=== PATIENT | female | born 1950 | race Caucasian/White ===

== ENCOUNTER 2017-01-01 21:22 | Inpatient (IN) | payer MEDICARE, OTHER ==
[~2017-01-01] VITALS: Ht 162.6 cm; Wt 73.5 kg
--- NOTE | 2017-01-01 21:30 | NUR ---
PT BIB [facility];DR WHARTON TO EXAM
[2017-01-01 22:17] LABS: BASOPHILS % (AUTO) 0.2 % (0.0-2.0); EOSINOPHILS # (AUTO) 0.1 K/uL (0.0-0.7); EOSINOPHILS % (AUTO) 0.7 % (0.0-7.0); HEMATOCRIT 37.9 % (37-47); HEMOGLOBIN 12.8 G/DL (12.0-16.0); LYMPHOCYTES # (AUTO) 2.1 K/UL (0.8-4.8); LYMPHOCYTES % (AUTO) 15.8 % (20.5-51.5); MEAN CORPUSCULAR HEMOGLOBIN 28.7 UUG (27.0-31.0); MEAN CORPUSCULAR HGB CONC 34 g/dL (32.0-37.0); MEAN CORPUSCULAR VOLUME 85.4 FL (81.0-99.0); MONOCYTES # (AUTO) 0.7 K/UL (0.1-1.30); MONOCYTES % (AUTO) 4.9 % (0.0-11.0); NEUTROPHILS # (AUTO) 10.4 K/UL (1.8-8.9); NEUTROPHILS % (AUTO) 78.4 % (38.5-71.5); PLATELET COUNT (AUTO) 427 K/UL (150-450); RED BLOOD CELL COUNT(AUTO) 4.44 MIL/UL (4.2-5.4); WHITE BLOOD COUNT (AUTO) 13.3 K/UL (4.0-11.2)
[2017-01-01 22:25] LABS: CARBON DIOXIDE 30 mmol/L (21-32); CHLORIDE 106 mmol/L (98-107); CREATININE 0.8 mg/dL (0.6-1.3); GLUCOSE 109 mg/dL (74-106); UREA NITROGEN, BLOOD 30 mg/dL (7-18)
[2017-01-01] MEDS ORDERED: LISI-603 PO (22:25)
[2017-01-01] MEDS ORDERED: DOCU100C36 PO (22:25)
[2017-01-01] MEDS ORDERED: ALPR0.255 PO (22:25)
[2017-01-01] MEDS ORDERED: NIFE30TA91 PO (22:25)
[2017-01-01] MEDS ORDERED: MULT1TAB11 PO (22:25)
[2017-01-01] MEDS ORDERED: PRED20TA PO (22:25)
[2017-01-01] MEDS ORDERED: FLUO10CA26 PO (22:25)
[2017-01-01] MEDS ORDERED: CLON0.1T PO ×2 (22:25)
[2017-01-01] MEDS ORDERED: ACET325T53 PO (22:25)
[2017-01-01] MEDS ORDERED: OMEG1CAP40 PO (22:25)
[2017-01-01] MEDS ORDERED: MAGN400O6 PO (22:25)
[2017-01-01] MEDS ORDERED: SIME80TA15 PO (22:25)
[2017-01-01] MEDS ORDERED: FLUT1DIS28 IH (22:25)
[2017-01-01 22:30] LABS: ACETAMINOPHEN < 2.0 ug/mL (10-30); ALANINE AMINOTRANSFERASE 28 U/L (14-59); ALKALINE PHOSPHATASE 53 U/L (50-136); ASPARTATE AMINOTRANSFERASE 12 U/L (15-37); BILIRUBIN,DIRECT < 0.1 mg/dL (0.0-0.2); BILIRUBIN,TOTAL 0.1 mg/dL (0.2-1.0); TOTAL PROTEIN, SERUM 6.6 g/dL (6.4-8.2)
[2017-01-01 22:31] LABS: ETHANOL < 3 MG/DL (0-0)
[2017-01-01 22:50] LABS: THYROID STIMULATING HORMONE 0.947 mIU/mL (0.358-3.740)
--- NOTE | 2017-01-01 23:44 | NUR ---
Pt. admitted to [facility], under care of Dr. La. Belongs List completed
[2017-01-02] MEDS: TEMAZEPAM 7.5 MG CAPSULE PO PRN (00:14)
[2017-01-02] MEDS ORDERED: MAGNESIUM HYDROXIDE 30 ML LIQUID UDC PO PRN (00:15)
[2017-01-02] MEDS ORDERED: MAG HYDROX/AL HYDROX/SIMETH 30 ML LIQUID UDC PO PRN (00:15)
[2017-01-02] MEDS ORDERED: TEMAZEPAM 7.5 MG CAPSULE ONE (00:26)
[2017-01-02 00:40] VITALS: BP 181/98
--- NOTE | 2017-01-02 01:34 | NUR ---
GPS: Admitted to unit earlier a 66 yr.old female under the care of / in stable condition. Pt.is on a 72 hour hold for DTS. Pt. acknowledged stating a wish to to [facility] mental health social worker by inhaling car exhaust as plan,per hold. Pt.is depressed but denies wanting to hurt self at this time. Contracts for safety while in the hosp. Re-assured prn. Skin assessment done as well as belongings list. Safe environment provided. Medicated with Restoril 7.5mg for sleep per pts.request. Will continue to monitor.
[2017-01-02 07:30] VITALS: BP 176/80
[2017-01-02] MEDS: NICOTINE 14 MG/24HR PATCH TD SCH (09:50)
[2017-01-02] MEDS: LORAZEPAM 0.5 MG TABLET PO PRN (09:58)
[2017-01-02] MEDS ORDERED: Medication Not On Formulary EA (Omega-3 Fatty Acids/Fish Oil (Omega 3 1,000 Mg Softgel) PO SCH (10:15)
[2017-01-02] MEDS ORDERED: Medication Not On Formulary EA (Nifedipine (Nifedipine Er) 30 MG) PO SCH (10:15)
[2017-01-02] MEDS ORDERED: FLUTICASONE/SALMETEROL 250/50 INHALER IH SCH (10:15)
[2017-01-02] MEDS ORDERED: CLONIDINE HCL 0.1 MG TABLET PO PRN (10:15)
[2017-01-02] MEDS ORDERED: DEXTROSE 50% 50 ML DISP.SYRIN IV PRN (10:15)
[2017-01-02] MEDS ORDERED: SIMETHICONE 80 MG TAB.CHEW PO PRN (10:15)
[2017-01-02] MEDS ORDERED: Medication Not On Formulary EA (Multivitamins W-Minerals (Multivitamin With Minerals) 1 PO SCH (10:15)
[2017-01-02] MEDS: OMEGA-3 FATTY ACIDS/FISH OIL CAPSULE PO SCH ×2 (11:26→20:24)
[2017-01-02] MEDS: DOCUSATE SODIUM 100 MG CAPSULE PO SCH (11:26)
[2017-01-02] MEDS: MULTIVIT, IRON, MIN NO. 8, FA TABLET PO SCH (11:26)
[2017-01-02] MEDS: predniSONE 20 MG TABLET PO SCH (11:26)
[2017-01-02] MEDS: LISINOPRIL 20 MG TABLET PO SCH (11:26)
[2017-01-02] MEDS: NIFEdipine XL 30 MG TABSR PO SCH (11:26)
[2017-01-02] MEDS: CLONIDINE HCL 0.1 MG TABLET PO SCH ×3 (11:29→21:12)
[2017-01-02] MEDS: BLOOD SUGAR DIAGNOSTIC 1 EACH STRIP VI SCH ×3 (11:50→20:59)
[2017-01-02] MEDS: FLUTICASONE/VILANTEROL 1 EACH BLST.W.DEV INH SCH (13:12)
[2017-01-02 15:00] VITALS: BP 168/87
--- NOTE | 2017-01-02 16:22 | NUR ---
Initial Discharge Instructions: Pt was residing at [facility] [[address] [place] [address]; ]. Per pt she would like to return there upon discharge. Pt consented to speak with pt's son, Freeman Fernandez ([phone]). SW will speak with pt, family, facility, and MD regarding appropriate discharge plans. SW will form a safe and proper discharge plan.
[2017-01-02] MEDS: INSULIN REGULAR, HUMAN 300 UNIT/3 ML VIAL SQ PRN (17:24)
[2017-01-02 19:52] LABS: *BILIRUBIN,URIN NEGATIVE (NEGATIVE); *BLOOD, URINE NEGATIVE (NEGATIVE); *CLARITY,URINE SLIGHTLY CLOUDY (CLEAR); *COLOR,URINE YELLOW (YELLOW); *KETONES,URINE NEGATIVE (NEGATIVE); *PROTEIN,URINE NEGATIVE (NEGATIVE); *UROBILINOGEN,URINE 0.2 E.U./dl (NORMAL); LEUKOCYTE ESTERASE ,URINE TRACE (NEGATIVE); NITRITE, URINE POSITIVE (NEGATIVE); PH,URINE 5.5 (5.0-8.0); UGLUCOSE NEGATIVE (NEGATIVE)
[2017-01-02 19:57] LABS: *AMPHETAMINE, URINE NEGATIVE (NEGATIVE); *BARBITURATE, URINE NEGATIVE (NEGATIVE); *CANNABINOID, URINE NEGATIVE (NEGATIVE); *COCCAINE, URINE NEGATIVE (NEGATIVE); *OPIATE, URINE NEGATIVE (NEGATIVE); *PHENCYCLIDINE SCREEN,URINE NEGATIVE (NEGATIVE)
[2017-01-02] MEDS: ATORVASTATIN 10 MG TABLET PO SCH (20:24)
[2017-01-02] MEDS: SERTRALINE HCL 50 MG TABLET PO SCH (20:24)
[2017-01-02 20:53] LABS: BACTERIA,URINE MANY /HPF (NONE SEEN); MUCUS,URINE MANY /LPF (0-FEW); RBC,URINE 0-3 /HPF (0-3); SQUAMOUS EPITHELIAL CELL,UR MODERATE /HPF (NONE SEEN)
[2017-01-02 20:58] VITALS: BP 160/90
[2017-01-03] MEDS: LORAZEPAM 0.5 MG TABLET PO PRN ×2 (03:11→16:33)
[2017-01-03] MEDS: CLONIDINE HCL 0.1 MG TABLET PO SCH ×3 (06:13→21:13)
[2017-01-03] MEDS: BLOOD SUGAR DIAGNOSTIC 1 EACH STRIP VI SCH ×4 (06:37→20:32)
[2017-01-03 07:30] VITALS: BP 137/75
[2017-01-03] MEDS: NIFEdipine XL 30 MG TABSR PO SCH (08:19)
[2017-01-03] MEDS: DOCUSATE SODIUM 100 MG CAPSULE PO SCH (08:19)
[2017-01-03] MEDS: MULTIVIT, IRON, MIN NO. 8, FA TABLET PO SCH (08:19)
[2017-01-03] MEDS: OMEGA-3 FATTY ACIDS/FISH OIL CAPSULE PO SCH ×2 (08:19→20:11)
[2017-01-03] MEDS: SERTRALINE HCL 50 MG TABLET PO SCH (08:20)
[2017-01-03] MEDS: predniSONE 20 MG TABLET PO SCH (08:20)
[2017-01-03] MEDS: NICOTINE 14 MG/24HR PATCH TD SCH (08:20)
[2017-01-03] MEDS: LISINOPRIL 20 MG TABLET PO SCH (08:20)
[2017-01-03] MEDS: SULFAMETH/TRIMETH 800/160 MG TABLET PO SCH ×2 (08:20→16:19)
[2017-01-03] MEDS: FLUTICASONE/VILANTEROL 1 EACH BLST.W.DEV INH SCH (08:23)
[2017-01-03] MEDS: INSULIN REGULAR, HUMAN 300 UNIT/3 ML VIAL SQ PRN (16:32)
[2017-01-03 20:09] VITALS: BP 124/71
[2017-01-03] MEDS: ATORVASTATIN 10 MG TABLET PO SCH (20:11)
[2017-01-03] MEDS: TEMAZEPAM 7.5 MG CAPSULE PO PRN (20:50)
[2017-01-04] MEDS: LORAZEPAM 1 MG TABLET PO PRN ×2 (00:42→15:07)
[2017-01-04] MEDS: ACETAMINOPHEN 325 MG TABLET PO PRN (01:40)
[2017-01-04] MEDS: BLOOD SUGAR DIAGNOSTIC 1 EACH STRIP VI SCH ×4 (06:40→21:00)
[2017-01-04] MEDS: CLONIDINE HCL 0.1 MG TABLET PO SCH ×3 (06:42→22:03)
[2017-01-04 07:12] LABS: BASOPHILS # (AUTO) 0.1 K/uL (0.0-8.0); BASOPHILS % (AUTO) 0.5 % (0.0-2.0); EOSINOPHILS # (AUTO) 0.2 K/uL (0.0-0.7); EOSINOPHILS % (AUTO) 1.4 % (0.0-7.0); HEMATOCRIT 42.1 % (37-47); HEMOGLOBIN 14.4 G/DL (12.0-16.0); LYMPHOCYTES # (AUTO) 3.8 K/UL (0.8-4.8); LYMPHOCYTES % (AUTO) 27.7 % (20.5-51.5); MEAN CORPUSCULAR HEMOGLOBIN 29.3 UUG (27.0-31.0); MEAN CORPUSCULAR HGB CONC 34 g/dL (32.0-37.0); MEAN CORPUSCULAR VOLUME 85.5 FL (81.0-99.0); MONOCYTES # (AUTO) 0.8 K/UL (0.1-1.30); MONOCYTES % (AUTO) 6.2 % (0.0-11.0); NEUTROPHILS # (AUTO) 8.7 K/UL (1.8-8.9); NEUTROPHILS % (AUTO) 64.2 % (38.5-71.5); PLATELET COUNT (AUTO) 470 K/UL (150-450); RED BLOOD CELL COUNT(AUTO) 4.93 MIL/UL (4.2-5.4); WHITE BLOOD COUNT (AUTO) 13.6 K/UL (4.0-11.2)
[2017-01-04 07:22] LABS: BILIRUBIN,TOTAL 0.4 mg/dL (0.2-1.0); CREATININE 1.1 mg/dL (0.6-1.3); PHOSPHOROUS 3.5 mg/dL (2.5-4.9); POTASSIUM 3.8 mmol/L (3.5-5.1); TOTAL PROTEIN, SERUM 7.1 g/dL (6.4-8.2)
[2017-01-04 07:30] VITALS: BP 141/83
[2017-01-04] MEDS: SULFAMETH/TRIMETH 800/160 MG TABLET PO SCH ×2 (08:19→16:28)
[2017-01-04] MEDS: MULTIVIT, IRON, MIN NO. 8, FA TABLET PO SCH (08:19)
[2017-01-04] MEDS: NIFEdipine XL 30 MG TABSR PO SCH (08:19)
[2017-01-04] MEDS: LISINOPRIL 20 MG TABLET PO SCH (08:20)
[2017-01-04] MEDS: OMEGA-3 FATTY ACIDS/FISH OIL CAPSULE PO SCH ×2 (08:20→22:09)
[2017-01-04] MEDS: DOCUSATE SODIUM 100 MG CAPSULE PO SCH (08:20)
[2017-01-04] MEDS: predniSONE 20 MG TABLET PO SCH (08:20)
[2017-01-04] MEDS: SERTRALINE HCL 50 MG TABLET PO SCH (08:20)
[2017-01-04] MEDS: FLUTICASONE/VILANTEROL 1 EACH BLST.W.DEV INH SCH (08:21)
[2017-01-04] MEDS: NICOTINE 14 MG/24HR PATCH TD SCH (08:32)
[2017-01-04] MEDS ORDERED: NICOTINE 14 MG/24HR PATCH TD SCH (09:00)
[2017-01-04] MEDS: NICOTINE 21 MG/24HR PATCH TD SCH (09:26)
[2017-01-04] MEDS: INSULIN REGULAR, HUMAN 300 UNIT/3 ML VIAL SQ PRN (16:31)
[2017-01-04 16:52] VITALS: BP 126/70
[2017-01-04 20:46] VITALS: BP 131/78
[2017-01-04] MEDS ORDERED: chlorproMAZINE 25 MG TABLET PO SCH ×2 (21:00)
[2017-01-04] MEDS ORDERED: DIVALPROEX 250 MG TABLET.DR PO SCH (21:00)
[2017-01-04] MEDS: ATORVASTATIN 10 MG TABLET PO SCH (22:09)
[2017-01-04] MEDS: TRIHEXYPHENIDYL HCL 2 MG TABLET PO SCH (22:15)
[2017-01-04] MEDS: TEMAZEPAM 7.5 MG CAPSULE PO PRN (22:18)
[2017-01-05] MEDS: ACETAMINOPHEN 325 MG TABLET PO PRN (02:42)
[2017-01-05] MEDS: CLONIDINE HCL 0.1 MG TABLET PO SCH ×3 (06:09→22:00)
[2017-01-05] MEDS: BLOOD SUGAR DIAGNOSTIC 1 EACH STRIP VI SCH ×4 (07:04→20:24)
[2017-01-05 07:30] VITALS: BP 121/78
[2017-01-05] MEDS: DOCUSATE SODIUM 100 MG CAPSULE PO SCH (08:08)
[2017-01-05] MEDS: OMEGA-3 FATTY ACIDS/FISH OIL CAPSULE PO SCH ×2 (08:08→20:10)
[2017-01-05] MEDS: NICOTINE 21 MG/24HR PATCH TD SCH (08:08)
[2017-01-05] MEDS: NIFEdipine XL 30 MG TABSR PO SCH (08:09)
[2017-01-05] MEDS: LISINOPRIL 20 MG TABLET PO SCH (08:09)
[2017-01-05] MEDS: SULFAMETH/TRIMETH 800/160 MG TABLET PO SCH ×2 (08:10→16:57)
[2017-01-05] MEDS: SERTRALINE HCL 50 MG TABLET PO SCH (08:10)
[2017-01-05] MEDS: predniSONE 20 MG TABLET PO SCH (08:10)
[2017-01-05] MEDS: TRIHEXYPHENIDYL HCL 2 MG TABLET PO SCH (08:11)
[2017-01-05] MEDS: MULTIVIT, IRON, MIN NO. 8, FA TABLET PO SCH (08:20)
[2017-01-05] MEDS: FLUTICASONE/VILANTEROL 1 EACH BLST.W.DEV INH SCH (08:20)
[2017-01-05] MEDS ORDERED: TRIHEXYPHENIDYL HCL 2 MG TABLET PO SCH (13:00)
[2017-01-05] MEDS ORDERED: DIVALPROEX 250 MG TABLET.DR PO SCH (13:00)
[2017-01-05] MEDS ORDERED: MAGNESIUM HYDROXIDE 30 ML LIQUID UDC PO ONE (13:00)
[2017-01-05] MEDS ORDERED: BISACODYL 5 MG TABLET.DR PO PRN (13:00)
[2017-01-05] MEDS ORDERED: chlorproMAZINE 25 MG TABLET PO SCH (13:00)
[2017-01-05 16:43] VITALS: BP 153/79
[2017-01-05] MEDS: LORAZEPAM 1 MG TABLET PO PRN (16:57)
[2017-01-05] MEDS: INSULIN REGULAR, HUMAN 300 UNIT/3 ML VIAL SQ PRN ×2 (17:05→20:30)
[2017-01-05] MEDS: ATORVASTATIN 10 MG TABLET PO SCH (20:10)
[2017-01-05 20:23] VITALS: BP 121/60
[2017-01-06] MEDS: CLONIDINE HCL 0.1 MG TABLET PO SCH ×3 (06:33→21:35)
[2017-01-06] MEDS: BLOOD SUGAR DIAGNOSTIC 1 EACH STRIP VI SCH ×4 (06:40→20:16)
[2017-01-06 07:30] VITALS: BP 133/80
[2017-01-06] MEDS: DOCUSATE SODIUM 100 MG CAPSULE PO SCH ×2 (08:02→20:20)
[2017-01-06] MEDS: OMEGA-3 FATTY ACIDS/FISH OIL CAPSULE PO SCH ×2 (08:02→20:20)
[2017-01-06] MEDS: SERTRALINE HCL 50 MG TABLET PO SCH (08:02)
[2017-01-06] MEDS: SULFAMETH/TRIMETH 800/160 MG TABLET PO SCH ×2 (08:03→17:27)
[2017-01-06] MEDS: LISINOPRIL 20 MG TABLET PO SCH (08:03)
[2017-01-06] MEDS: predniSONE 20 MG TABLET PO SCH (08:03)
[2017-01-06] MEDS: MULTIVIT, IRON, MIN NO. 8, FA TABLET PO SCH (08:03)
[2017-01-06] MEDS: NIFEdipine XL 30 MG TABSR PO SCH (08:03)
[2017-01-06] MEDS: NICOTINE 21 MG/24HR PATCH TD SCH (08:04)
[2017-01-06] MEDS: FLUTICASONE/VILANTEROL 1 EACH BLST.W.DEV INH SCH (08:56)
[2017-01-06] MEDS: INSULIN REGULAR, HUMAN 300 UNIT/3 ML VIAL SQ PRN (12:40)
[2017-01-06] MEDS ORDERED: BISACODYL 10 MG SUPP.RECT RC PRN (14:30)
[2017-01-06] MEDS ORDERED: BISACODYL 5 MG TABLET.DR PO ONE (14:30)
[2017-01-06 17:10] VITALS: BP 153/86
[2017-01-06] MEDS: ATORVASTATIN 10 MG TABLET PO SCH ×2 (20:20→20:21)
[2017-01-06 20:31] VITALS: BP 149/74
[2017-01-06] MEDS: TEMAZEPAM 7.5 MG CAPSULE PO PRN (21:35)
[2017-01-07] MEDS: CLONIDINE HCL 0.1 MG TABLET PO SCH ×3 (06:15→21:12)
[2017-01-07] MEDS: BLOOD SUGAR DIAGNOSTIC 1 EACH STRIP VI SCH ×2 (06:15→18:20)
[2017-01-07] MEDS ORDERED: INSULIN REGULAR, HUMAN 300 UNIT/3 ML VIAL SQ PRN (07:30)
[2017-01-07] MEDS ORDERED: DEXTROSE 50% 50 ML DISP.SYRIN IV PRN (07:30)
--- NOTE | 2017-01-07 07:30 | NUR ---
Awake, alert, oriented x 3, reading a book. Pleasant and interacts
[2017-01-07 07:32] LABS: BASOPHILS # (AUTO) 0.1 K/uL (0.0-8.0); BASOPHILS % (AUTO) 0.7 % (0.0-2.0); EOSINOPHILS # (AUTO) 0.2 K/uL (0.0-0.7); EOSINOPHILS % (AUTO) 1.3 % (0.0-7.0); HEMATOCRIT 37.4 % (31.2-41.9); HEMOGLOBIN 12.9 g/dL (10.9-14.3); LYMPHOCYTES # (AUTO) 3.7 K/uL (20.0-40.0); LYMPHOCYTES % (AUTO) 29.6 % (20.5-51.5); MEAN CORPUSCULAR HEMOGLOBIN 29.3 uug (24.7-32.8); MEAN CORPUSCULAR HGB CONC 35 g/dL (32.3-35.6); MEAN CORPUSCULAR VOLUME 84.8 fL (75.5-95.3); MONOCYTES # (AUTO) 0.9 K/uL (2.0-10.0); MONOCYTES % (AUTO) 7.1 % (0.0-11.0); NEUTROPHILS # (AUTO) 7.7 K/uL (1.8-8.9); NEUTROPHILS % (AUTO) 61.3 % (38.5-71.5); PLATELET COUNT (AUTO) 364 K/uL (179-408); RED BLOOD CELL COUNT(AUTO) 4.41 MIL/uL (3.63-4.92); WHITE BLOOD COUNT (AUTO) 12.5 K/uL (3.8-11.8)
[2017-01-07 07:54] VITALS: BP 122/72
[2017-01-07 07:58] LABS: BILIRUBIN,TOTAL 0.3 mg/dL (0.2-1.0); MAGNESIUM 1.9 mg/dL (1.8-2.4); PHOSPHOROUS 2.9 mg/dL (2.5-4.9); POTASSIUM 3.7 mmol/L (3.5-5.1); TOTAL PROTEIN, SERUM 6.2 g/dL (6.4-8.2)
[2017-01-07] MEDS: OMEGA-3 FATTY ACIDS/FISH OIL CAPSULE PO SCH ×2 (08:43→20:04)
[2017-01-07] MEDS: FLUTICASONE/VILANTEROL 1 EACH BLST.W.DEV INH SCH (08:43)
[2017-01-07] MEDS: DOCUSATE SODIUM 100 MG CAPSULE PO SCH ×2 (08:43→20:04)
[2017-01-07] MEDS: SULFAMETH/TRIMETH 800/160 MG TABLET PO SCH ×2 (08:43→18:20)
[2017-01-07] MEDS: LISINOPRIL 20 MG TABLET PO SCH (08:44)
[2017-01-07] MEDS: predniSONE 20 MG TABLET PO SCH (08:44)
[2017-01-07] MEDS: NICOTINE 21 MG/24HR PATCH TD SCH (08:45)
[2017-01-07] MEDS: NIFEdipine XL 30 MG TABSR PO SCH (08:45)
[2017-01-07] MEDS: MULTIVIT, IRON, MIN NO. 8, FA TABLET PO SCH (08:45)
[2017-01-07] MEDS: SERTRALINE HCL 50 MG TABLET PO SCH (08:45)
--- NOTE | 2017-01-07 15:00 | NUR ---
Placed on voluntary status.
--- NOTE | 2017-01-07 15:28 | NUR ---
Traveling Auditor: Pt release by court hearing on 01/07/17. Pt wishes to return to [facility] in [facility] [[address] [place] [address]; ]. Pt verbalized understanding of 7-day bed hold at [facility] and asked for Ombudsman. SW provided pt with Ombudsman information. Spoke with Holden at [facility] who is aware of pt's wishes and will follow-up. REBECCA will continue to follow-up.
[2017-01-07 16:46] VITALS: BP 146/75
[2017-01-07 19:59] VITALS: BP 132/76
[2017-01-07] MEDS: ATORVASTATIN 10 MG TABLET PO SCH (20:04)
[2017-01-07] MEDS: TEMAZEPAM 7.5 MG CAPSULE PO PRN (21:12)
[2017-01-08] MEDS: CLONIDINE HCL 0.1 MG TABLET PO SCH (06:28)
[2017-01-08] MEDS: BLOOD SUGAR DIAGNOSTIC 1 EACH STRIP VI SCH (06:38)
[2017-01-08] MEDS: predniSONE 20 MG TABLET PO SCH (08:16)
[2017-01-08] MEDS: OMEGA-3 FATTY ACIDS/FISH OIL CAPSULE PO SCH (08:16)
[2017-01-08] MEDS: LISINOPRIL 20 MG TABLET PO SCH (08:16)
[2017-01-08] MEDS: NICOTINE 21 MG/24HR PATCH TD SCH (08:16)
[2017-01-08] MEDS: NIFEdipine XL 30 MG TABSR PO SCH (08:16)
[2017-01-08] MEDS: SULFAMETH/TRIMETH 800/160 MG TABLET PO SCH (08:16)
[2017-01-08] MEDS: MULTIVIT, IRON, MIN NO. 8, FA TABLET PO SCH (08:16)
[2017-01-08] MEDS: SERTRALINE HCL 50 MG TABLET PO SCH (08:16)
[2017-01-08] MEDS: DOCUSATE SODIUM 100 MG CAPSULE PO SCH (08:17)
[2017-01-08] MEDS: FLUTICASONE/VILANTEROL 1 EACH BLST.W.DEV INH SCH (08:32)
[2017-01-08 09:08] VITALS: BP 117/71
--- NOTE | 2017-01-08 09:13 | NUR ---
News Internship: At 0810, spoke with Holden at [facility] who stated he will contact collection systems administrator about time the facility is able to accept patient for discharge today. Waiting for return call. SW will follow-up.
--- NOTE | 2017-01-08 09:55 | NUR ---
DC Note: Patient will be discharged to [facility] [[address] [place] [address]; ] via ambulance today at 2pm. Spoke with Holden at the facility who states that they ready to accept the patient today. Patients sonFreeman is aware and agreeable with discharge plans. Patient is aware and agreeable with discharge plans. Pt will follow-up at the facility with Dr. Astudillo (Room Service Waiter/Waitress) and Dr. La (Psychiatrist). Spoke with social science teacherAlba at the facility who stated she is putting in a Psychotherapist referral for the patient. For smoking cessation, patient was referred to [employer] 800-LUNGUSA and [employer] [phone].
--- NOTE | 2017-01-08 13:20 | NUR ---
Pt to DC to [facility] [ [address] [place] [address]; ] via ambulance today at 1320pm. Pt will follow up at the facility w/ Dr. Astudillo and Dr. La. Pt is stable to DC, calm, cooperative, well groomed, skin intact,denies suicidal ideation at this time and contracts for safety inside and outside of the hospital. Pt discharged w/ all belongings, valuables, DC paperwork, and exit care packet.
== END 2017-01-08 13:30 | DRG 885 ==
LOC: ER 21:23 → GPS 22:45
PROVIDERS: ADMIT Psychiatry & Neurology Psychosomatic Medicine; ATTEND Internal Medicine
DX: F33.2 Major depressive disorder, recurrent severe without psychotic features (principal); R45.851 Suicidal ideations; J44.9 Chronic obstructive pulmonary disease, unspecified; E88.09 Other disorders of plasma-protein metabolism, not elsewhere classified; E11.9 Type 2 diabetes mellitus without complications; D72.829 Elevated white blood cell count, unspecified; D47.3 Essential (hemorrhagic) thrombocythemia; E03.9 Hypothyroidism, unspecified; N39.0 Urinary tract infection, site not specified; E78.5 Hyperlipidemia, unspecified; F17.210 Nicotine dependence, cigarettes, uncomplicated; I10 Essential (primary) hypertension; K59.00 Constipation, unspecified; Z88.0 Allergy status to penicillin; R79.89 Other specified abnormal findings of blood chemistry; Z79.4 Long term (current) use of insulin; G47.419 Narcolepsy without cataplexy
CPT/HCPCS: 36415; 80307; 83735; 84100; 84443; 85025; 93005; A4663; G0480; G0480-TC; J1815; J7512